=== PATIENT | male | born 1990 | race Two or more races ===

== ENCOUNTER 2022-01-25 20:24 | Emergency (ER) | payer OTHER ==
[2022-01-25] MEDS ORDERED: Ketorolac 60 MG/2 ML SDV IM ONE (21:50)
== END 2022-01-25 22:40 | disposition home or self-care (01) ==
LOC: JD.ED 20:24
DX: G44.209 Tension-type headache, unspecified, not intractable (principal); I10 Essential (primary) hypertension
CPT/HCPCS: 36415; 70450; 80053; 85025; 93005; 96372; 99284; J1885

== ENCOUNTER 2022-02-02 10:24 | Emergency (ER) | payer SELFPAY ==
[2022-02-02] MEDS ORDERED: Ketorolac 60 MG/2 ML SDV IM ONE (12:43)
== END 2022-02-02 13:22 | disposition home or self-care (01) ==
LOC: JD.ED 10:24
DX: S89.92XA Unspecified injury of left lower leg, initial encounter (principal); I10 Essential (primary) hypertension; X50.1XXA Overexertion from prolonged static or awkward postures, initial encounter
CPT/HCPCS: 73562; 96372; 99283; J1885

== ENCOUNTER 2022-03-03 10:30 | Emergency (ER) | payer SELFPAY ==
[2022-03-03] MEDS ORDERED: HYDROmorphone 0.5 MG/0.5 ML Syringe IM ONE (11:24)
[2022-03-03] MEDS ORDERED: Ondansetron 4 MG Tab.DIS PO ONE (11:24)
== END 2022-03-03 12:50 | disposition home or self-care (01) ==
LOC: JD.ED 10:30
DX: S89.92XA Unspecified injury of left lower leg, initial encounter (principal); M25.462 Effusion, left knee; E78.00 Pure hypercholesterolemia, unspecified; I10 Essential (primary) hypertension
CPT/HCPCS: 73562-26-LT; 73562-LT; 99283